=== PATIENT | female | born 1970 | race Caucasian/White ===

== ENCOUNTER 2020-05-13 09:26 | Emergency (ER) | payer BC ==
[~2020-05-13] VITALS: Ht 172.7 cm; Wt 98.0 kg
--- NOTE | 2020-05-13 09:55 | NUR ---
pt presents to ED sent from urgent care this am, c/o cough starting last night, and right sided temporal pain, numbness on right side of neck and right occiput x 3 weeks, pt states that vision in right eye seems altered, describes "it's vibrating on that side." pt unable to quantify onset of this symptom, states "it's been creeping up on me." pt is a&ox4, resps even and unlabored. neuro intact. pupils equal, round and reactive. pt placed on bp and spo2 monitors, call light in reach, mask on pt. pt seen and examined by STORMY Mcguire, updated with POC. pt declines pain medication at this time, stating "it doesn't really hurt right now." awaiting xray and labwork at this time.
[2020-05-13 10:11] LABS: BASOPHILS # (AUTO) 0.05 x10^3/uL (0-0.1); BASOPHILS % (AUTO) 0 % (0-1); EOSINOPHILS # (AUTO) 0.22 x10^3/uL (0-0.4); EOSINOPHILS % (AUTO) 2 % (1-7); LYMPHOCYTES # (AUTO) 2.76 x10^3/uL (1-3.4); LYMPHOCYTES % (AUTO) 24 % (22-44); MD NO; MEAN CORPUSCULAR HEMOGLOBIN 31.9 pg (27.0-34.8); MEAN CORPUSCULAR VOLUME 93.7 fL (80-100); MEAN PLATELET VOLUME 9.4 fL (7.4-10.4); MONOCYTES # (AUTO) 0.35 x10^3/uL (0.2-0.8); MONOCYTES % (AUTO) 3 % (2-9); NEUTROPHILS % (AUTO) 70 % (42-75); PLATELET COUNT 292 x10^3/uL (130-400); RED BLOOD COUNT 4.84 x10^6/uL (3.82-5.3); RED CELL DISTRIBUTION WIDTH 13.4 % (9.6-15.2)
[2020-05-13 10:20] LABS: ALBUMIN 3.8 g/dL (3.4-5.0); ANION GAP 5 mmol/L (5-15); C-REACTIVE PROTEIN, QUANT 0.38 mg/dL (0.02-0.49); CHLORIDE 111 mmol/L (98-107); CREATININE 0.69 mg/dL (0.55-1.02)
--- NOTE | 2020-05-13 11:00 | NUR ---
PT RESTING ON MALCOLM, A&O, RESPS EVEN AND UNALBORED, DEVONN. AWAITING PROVIDER RECHECK AND DISPO.
[2020-05-13 11:33] VITALS: BP 122/68
--- NOTE | 2020-05-13 11:33 | NUR ---
STORMY GUAMAN AT BEDSIDE TO UPDATE PT WITH RESULTS AND POC.
--- NOTE | 2020-05-13 11:51 | NUR ---
pt given dc instructions and script, educated regarding albuterol and prednisone rx. pt a&o, resps even and unlabored, ambulatory to dc with steady gait. all questions answered.
[2020-05-13 12:05] LABS: HCT (SEDRATE) 45.3 % (34.6-47.8)
== END 2020-05-13 11:52 | disposition home or self-care (01) ==
LOC: ED 10:27
DX: J45.31 Mild persistent asthma with (acute) exacerbation (principal); R51 Headache; M79.10 Myalgia, unspecified site
CPT/HCPCS: 36415; 71045; 80048; 82040; 85025; 85651; 86140; 99284